=== PATIENT | female | born 1960 | race Caucasian/White ===

== ENCOUNTER → 2016-07-16 | Outpatient (CLI) | payer BC ==
--- NOTE | 2016-07-16 18:09 | KCIC ---
PROCEDURE MRI of the cervical spine without contrast 07/16/2016 HISTORY Neck pain which radiates down the left shoulder. TECHNIQUE Unenhanced T1 weighted, T2 weighted and inversion recovery sagittal and gradient echo and T2 weighted axial images of the cervical spine were obtained. FINDINGS Sagittal and coronal reconstructed images demonstrate minimal lateral curvature of the cervical spine convex to the right. There is straightening of the normal cervical lordosis. Degenerative signal changes are seen involving all of the discs of the cervical spine. Loss of height of the C5-6 and C6-7 discs is noted. Degenerative signal changes are seen within the marrow surrounding the C6-7 disc. Areas of increased signal intensity are seen on the T2 weighted and inversion recovery images involving the cervical spinal cord extending from the mid C6 level to the C6-7 disc space. These are in a paracentral location within the spinal cord and measure 11 x 9 2.6 x 1.6 millimeters in craniocaudal, AP and transverse dimensions. They are consistent with areas of myelomalacia. No additional area of abnormal signal intensity is seen involving the cervical spinal cord. On the axial images at the C2-3 disc space there is a minimal generalized disc bulge. Degenerative changes are seen involving the uncovertebral and facet joints bilaterally. These findings do not result in significant central spinal canal stenosis. Very mild bilateral neural foraminal stenosis is seen. At the C3-4 disc space there is a mild generalized disc bulge. Degenerative changes are seen involving the uncovertebral and facet joints, left greater than right. These findings do not result in significant central spinal canal stenosis. Mild left neural foraminal stenosis is seen. The right neural foramina is patent. At the C4-5 disc space there is a mild generalized disc bulge. Degenerative changes are seen involving the uncovertebral and facet joints bilaterally. These findings when combined do not result in significant central spinal canal stenosis. Mild bilateral neural foraminal stenosis is seen. At the C5-6 disc space there is a mild generalized disc bulge. Degenerative changes are seen involving the uncovertebral and facet joints, left greater than right. These findings do not result in significant central spinal canal stenosis. Mild left neural foraminal stenosis is seen. At the C6-7 disc space there is a moderate generalized disc bulge. Associated posterior vertebral body osteophyte formation is seen. Degenerative changes are seen involving the uncovertebral and facet joints bilaterally. These findings efface the anterior and posterior CSF resulting in mild central spinal canal stenosis without cord impingement. Mild to moderate bilateral neural foraminal stenosis is seen. At the C7-T1 disc space there is a mild to moderate generalized disc bulge. This is eccentric to the right. Degenerative changes are seen involving the uncovertebral and facet joints, right greater than left. These findings efface the anterior CSF resulting in mild central spinal canal stenosis without evidence of cord impingement. Mild to moderate right neural foraminal stenosis is seen. The left neural foramina is patent. IMPRESSION 1. Degenerative changes are seen throughout the cervical spine. These findings result in mild central spinal canal stenosis at C6-7 and C7-T1 without evidence of cord impingement. Multilevel neural foraminal stenosis of varying severity is seen as outlined above. 2. Areas of myelomalacia are seen involving the cervical spinal cord at the C6-7 level. Electronically signed by: Tutu Cat MD (Jul 16, 2016 18:08:08)
== END | disposition home or self-care (01) ==
LOC: KCIC MRI 15:20
PROVIDERS: ATTEND Orthopaedic Surgery
DX: M25.512 Pain in left shoulder (principal); M54.2 Cervicalgia
CPT/HCPCS: 72141

== ENCOUNTER → 2016-08-02 | Outpatient (CLI) | payer BC ==
[~2016-08-02] MED LIST: AMIK500V2 IJ; AZIT250T6 PO; GADOBUTROL 7.5 MMOL/7.5 ML VIAL IV ONE; RIFA150C3 PO
--- NOTE | 2016-08-02 16:17 | KCIC ---
MR CERVICAL SPINE HISTORY:Reason For StudyReason: UPPER EXT WEAKNESS MASS / Spl. Instructions: 5cc Gadavist / History: F/U to abnormal MR here. Bilateral shoulder pain and arm weakness. COMPARISON: MRI cervical spine from July 16, 2016 Technique: Sagittal T2, sagittal STIR, sagittal T1, and axial gradient echo imaging was obtained of the cervical spine. Postcontrast T1 weighted images were obtained after intravenous administration of gadolinium based contrast. FINDINGS: Alignment and curvature are within normal limits. Vertebral body heights are maintained. Bone marrow signal is normal. There is multilevel degenerative disc height loss greatest at C6-C7. Similar to the previous exam from July 16, 2016, again noted is some abnormal cord signal abnormality and mild cord thinning at the level of C6-C7. This probably represents myelomalacia. There is no abnormal enhancement associated with this area or elsewhere within the cervical cord. Visualized soft tissues of the neck are within normal limits. At C2-C3 there is no spinal stenosis. At C3-C4 there is no spinal stenosis. C4-C5 there is no spinal stenosis. At C5-C6 there is no spinal stenosis. At C6-C7 there is mild bilateral foraminal narrowing from uncovertebral hypertrophy. At C7-T1 there is a small disc protrusion which abuts the ventral surface of the cord but does not cause significant mass effect upon it. There is mild right foraminal stenosis as a result as well. Impression: - Unchanged area of cord signal abnormality within the cord at the level of C6-C7. This probably represents myelomalacia. There is no abnormal enhancement associated with it. - Degenerative disc disease greatest at C6-7 and C7-T1. Electronically signed by: Raza Avila (Aug 02, 2016 16:16:58)
== END | disposition home or self-care (01) ==
LOC: KCIC MRI 14:00
PROVIDERS: ATTEND Orthopaedic Surgery
DX: M50.33 Other cervical disc degeneration, cervicothoracic region (principal)
CPT/HCPCS: 72156; A9585

== ENCOUNTER → 2016-10-03 | Outpatient (CLI) | payer BC ==
[~2016-10-03] MED LIST changes: -GADOBUTROL 7.5 MMOL/7.5 ML VIAL IV ONE
--- NOTE | 2016-10-03 11:09 | KCIC ---
Examination: CT chest without contrast HISTORY: History of bronchiectasis, history of right lower lobectomy COMPARISON: None available. TECHNIQUE: Axial CT images of the chest were performed without contrast. Coronal and sagittal reformats were performed. Exposure: One or more of the following individualized dose reduction techniques were utilized for this examination: 1. Automated exposure control 2. Adjustment of the mA and/or kV according to patient size 3. Use of iterative reconstruction technique FINDINGS: Examination limited due to lack of IV contrast. Right-sided Port-A-Cath is identified with the tip in the SVC. Bilateral breast prosthesis is identified. Heart size grossly appears unremarkable. Mild coronary artery calcifications. Multiple nodular densities identified in the left upper lobe of the lung about the fissure with the largest measuring 9.5 mm. Mild bronchiectatic changes identified in the right upper lobe, left upper lobe, right middle lobe region. There is a large thin-walled cyst or bulla or prior lobectomy changes are identified in the right lung base. Linear scarring is identified in the right upper lobe, left upper lobe. There is a calcified nodule measuring 6.8 cm in the right upper lobe lung. In the left lower lobe of the lung, there is a solid nodule measuring 1 cm. Few scattered subcentimeter nodules are identified in the left lower lobe. Mild elevation of the right hemidiaphragm likely volume loss right lung base. Noncontrasted liver, spleen, adrenal prostate is unremarkable. No evidence of lytic bony destructive lesion. Mild degenerative changes thoracic spine. Anterior cervical fusion hardware identified in the lower cervical spine. IMPRESSION: 1. Mild bronchiectatic changes identified in the bilateral upper lobes and right middle lobe. There are multiple nodular densities identified about the left fissure could be mucus plugging of the bronchial branches or nodules or nodular infiltrates. 2. Scattered pulmonary nodules identified in the right and left lobes of the lung with the largest 1 cm in the left lower lobe of the lung. Close interval follow-up examination is recommended in 3 months or follow-up PET/CT scan can be considered. 3. There is a large thin-walled cyst or bulla or prior lobectomy changes are identified in the right lung base. Electronically signed by: Jere Flores MD (10/03/2016 11:06 AM)
== END | disposition home or self-care (01) ==
LOC: KCIC CT 10:12
PROVIDERS: ATTEND Family Medicine
DX: J47.9 Bronchiectasis, uncomplicated (principal); Z90.2 Acquired absence of lung [part of]
CPT/HCPCS: 71250

== ENCOUNTER → 2017-05-05 | Outpatient (CLI) | payer BC | END | disposition home or self-care (01) | LOC: KCIC 14:09 | DX: R91.8 Other nonspecific abnormal finding of lung field (principal) | CPT/HCPCS: 71046 ==